=== PATIENT | male | born 1980 | race Caucasian/White ===

== ENCOUNTER → 2024-06-05 | Day surgery (SDC) | payer OTHER ==
[~2024-06-05] MED LIST: ATIVAN0.5 MG PO; FENTANYL CITRATE/PF 100MCG/2 ML INJ ONE; IOPAMIDOL 200 MG/ML 20 ML VIAL IT ONE; LIDOCAINE HCL 2% LOCAL INJ 5 ML SDV VIAL INJ ONE; PROPOFOL IV EMULSION 10 MG/ML 20 ML VIAL ONE
[2024-06-05] MEDS: LACTATED RINGER'S 1,000 ML ONE (06:11)
[2024-06-05 07:12] VITALS: TEMP 98.8
[2024-06-05 07:40] VITALS: BP 121/75; PULSE 63; RESP 16; O2SAT 98
== END | disposition home or self-care (01) ==
LOC: OR 05:38
PROVIDERS: ATTEND Specialist
DX: M16.51 Unilateral post-traumatic osteoarthritis, right hip (principal); F41.9 Anxiety disorder, unspecified; Z88.0 Allergy status to penicillin; Z79.899 Other long term (current) drug therapy
CPT/HCPCS: 77002; 93005; J2003; Q9967

== ENCOUNTER → 2024-11-20 | Day surgery (SDC) | payer OTHER ==
[~2024-11-20] MED LIST changes: -IOPAMIDOL 200 MG/ML 20 ML VIAL IT ONE; +MIDAZOLAM HCL 2 MG/2 ML VIAL ONE
[2024-11-20] MEDS: LACTATED RINGER'S 1,000 ML ONE (06:20)
[2024-11-20 07:24] VITALS: TEMP 97
[2024-11-20 07:50] VITALS: BP 104/69; PULSE 57; RESP 15; O2SAT 96
== END | disposition home or self-care (01) ==
LOC: OR 05:56
PROVIDERS: ATTEND Specialist
DX: M16.51 Unilateral post-traumatic osteoarthritis, right hip (principal); Z88.0 Allergy status to penicillin; Z79.899 Other long term (current) drug therapy; Z87.81 Personal history of (healed) traumatic fracture
CPT/HCPCS: 76000; 93005; J2003; J2250